=== PATIENT | female | born 2000 | race Caucasian/White ===

== ENCOUNTER 2022-05-15 20:07 | Emergency (ER) | payer OTHER, SELFPAY ==
[2022-05-15 20:14] VITALS: BP 124/77; PULSE 103; RESP 16; TEMP 36.6; O2SAT 99; BMI 22.2
--- NOTE | 2022-05-15 20:59 | ED.GENADULT ---
HPI - General Adult General Chief complaint: Allergic Reaction Stated complaint: Reaction to Medication,Nausea,Muscle Soreness Time Seen by Provider: 05/15/22 20:22 History of Present Illness HPI narrative: 22-year-old young woman recently moved to the area here with concern of potential allergic reaction. She is wondering if might be reacting to spironolactone given the symptoms she has been dealing with. Has been on spironolactone for some months for acne. Dose was increased a couple of weeks ago. She has had diarrhea for months. Does have preceding abdominal cramping. No hematochezia or melena described. No fever. Does have generalized sense of nausea more so over the last 2 weeks along with continued diarrhea and some tightness or discomfort in her upper back. Headache as well. Notes a history though of migraines. She does acknowledge a significant history of chronic stress but has not had diarrhea with increased stress in the past. No particular exposures or concerning ingestions. Moved some years ago from [place], where she had been attending college at [place]. Most recently from [place]. No fevers. No rashes. No focal weakness. No visual disturbances. LMP was 1 week ago. Denies possibility of . Did have asymptomatic COVID last year sometime. Related Data Home Medications Medication Instructions Recorded Confirmed spironolactone 50 mg tablet 75 mg PO DAILY 05/15/22 05/15/22 (Aldactone) Review of Systems Status of ROS: Reports: 10 or more systems reviewed and unremarkable except as noted in History and below [facility] Medical History No significant past medical history Surgical History (Updated 05/15/22 @ 21:04 by Randy Renteria RN) No significant past surgical history Social History Smoking Status: Never smoker Do you use any of these nicotine containing products: None Second hand tobacco smoke exposure: No How often do you have a drink containing alcohol: never How often do you have six or more drinks on one occasion: Never AUDIT-C Alcohol total score: 0 Non-prescribed substance use: denies use Exam Narrative: Exam Narrative: Pleasant. NAD. Direct in communication style. Skin is warm and dry. Closed comedonal acne about her face. Extremities are without edema. Moving all extremities without difficulty. Cranial nerves 2-12 to be intact. Neck is supple without lymphadenopathy. There is trace erythema in oropharynx posteriorly. Head is atraumatic. Lungs are clear is no flank pain. Abdomen is soft and with mild discomfort generally to palpation. No masses are appreciated. Heart rate is elevated rate in a regular rhythm. No murmur rub or gallop identified. Const: Vital Signs, click to edit/add: Vital Signs - 24 hr 05/15/22 20:14 05/15/22 21:39 05/15/22 22:27 Temperature 97.9 F 97.9 F 97.9 F Pulse Rate [Left P ulse Oximeter] 103 H 94 94 Respiratory Rate 16 16 16 Blood Pressure [Le ft Upper Arm] 124/77 115/74 115/74 Pulse Oximetry 99 99 Oxygen Delivery Me thod Room Air Room Air Documenting provider has reviewed patient's vital signs: yes Course Vital Signs Vital signs: Initial Vital Signs Respiratory Effort Spontaneous 05/15/22 20:09 Respiratory Depth Normal 05/15/22 20:09 Respiratory Pattern 05/15/22 20:09 Vital Signs Temperature 97.9 F 05/15/22 20:14 Pulse Rate 103 H 05/15/22 20:14 Respiratory Rate 16 05/15/22 20:14 Blood Pressure 124/77 05/15/22 20:14 Pulse Oximetry 99 05/15/22 20:14 Oxygen Delivery Method 05/15/22 20:14 Temperature 97.9 F 05/15/22 22:27 Pulse Rate 94 05/15/22 22:27 Respiratory Rate 16 05/15/22 22:27 Blood Pressure 115/74 05/15/22 22:27 Pulse Oximetry 99 05/15/22 21:39 Oxygen Delivery Method 05/15/22 21:39 Medical Decision Making MDM Narrative Medical decision making narrative: Declined treatments for nausea or headache or IV fluids at this time. I think it is hard to say whether not is having a medication reaction as is her concern at this time. Possibly more of an intolerance. Did offer general testing looking for red flags in laboratory. Looking for evidence of poor renal or liver function. She would like to proceed with this. Stool sample if possible. Labs ultimately unremarkable including negative testing for COVID and influenza. Lab Data Lab results reviewed: Yes I reviewed the patient's lab results Labs: Lab Results 0105/15/22 05/15/22 Range/Units 20:52 21:02 21:02 WBC 8.73 (4.50-11.00) K/uL RBC 4.66 (4.00-5.20) m/uL Hgb 14.5 (12.0-16.0) gm/dL Hct 40.8 (33.0-51.0) % MCV 88 (80-100) fL MCH 31 (26-34) pg MCHC 36 (32-36) gm/dL RDW Coeff of Jacinto 12.1 (11.5-15.5) % Plt Count 313 (140-440) K/uL Neut % (Auto) 56.5 (42.0-72.0) % Lymph % (Auto) 36.2 (20-44) % [place] % (Auto) 5.2 (0.0-11.0) % Eos % (Auto) 1.3 (0.0-7.0) % Baso % (Auto) 0.3 (0.0-3.0) % Neut # (Auto) 4.94 (1.7-7.0) K/uL Lymph # (Auto) 3.16 H (0.90-2.90) K/uL [place] # (Auto) 0.50 (0.00-0.90) K/UL Eos # (Auto) 0.11 (0.00-0.50) K/uL Baso # (Auto) 0.03 (0.00-0.30) K/uL Sodium 140 (135-149) mmol/L Potassium 4.5 (3.6-5.1) mmol/L Chloride 107 (96-114) mmol/L Carbon Dioxide 27 (20-32) mmol/L BUN 12 (5-24) mg/dL Creatinine 0.8 (0.5-1.5) mg/dL Estimated Creat Clear 118.27 Estimated GFR 106 ml/min Glucose 95 (60-115) mg/dL Calcium 9.5 (8.4-10.6) mg/dL Total Bilirubin 0.5 (0.1-1.5) mg/dL Direct Bilirubin 0.1 (0.0-0.5) mg/dL AST 30 (12-35) U/L ALT 23 (4-35) U/L Alkaline Phosphatase 141 (40-150) U/L C-Reactive Protein < 0.5 L (0.5-1.0) mg/dL Total Protein 7.7 (6.0-8.3) g/dL Albumin 4.6 (3.3-5.0) g/dL SARS-CoV-2 (PCR) Negative SARS-CoV-2 (Negative) Influenza Type A (PCR) Negative PCR FLU A (Negative) Influenza Type B (PCR) Negative PCR FLU B (Negative) Discharge Plan Discharge Clinical Impression: Malaise, Diarrhea Patient Disposition: Home, Self-Care Condition: Stable Additional Instructions: Of course there are more typical side effects; expected side effects to medications. However, medications can cause a variety of side effects unique to unique individuals that might be harder to predict. At this time I do not see evidence of something dangerous for you. Given the duration of diarrhea it does warrant further workup. If you can leave a sample there are orders pending here for stool culture and ova and parasite as a start of the workup. I would encourage you to establish primary care for follow-up otherwise. Prescriptions: No Action spironolactone [Aldactone] 50 mg tablet 75 mg PO DAILY Follow Up/Referrals: Provider,Not a Local [Primary Care Provider] - Stand Alone Forms: [employer] Info Instructions
[2022-05-15 21:09] LABS: Basophils Absolute Auto 0.03 K/uL (0.00-0.30); Basophils Percent Auto 0.3 % (0.0-3.0); Eosinophils Absolute Auto 0.11 K/uL (0.00-0.50); Eosinophils Percent Auto 1.3 % (0.0-7.0); Hematocrit 40.8 % (33.0-51.0); Hemoglobin* 14.5 gm/dL (12.0-16.0); Immature Granulocytes Abs Auto 0.04 K/uL (0.00-0.30); Immature Granulocytes Pct Auto 0.5 %; Lymphocytes Absolute Auto 3.16 K/uL (0.90-2.90); Lymphocytes Percent Auto 36.2 % (20-44); Mean Corpuscular HGB Conc 36 gm/dL (32-36); Mean Corpuscular Hemoglobin 31 pg (26-34); Mean Corpuscular Volume 88 fL (80-100); Monocytes Percent Auto 5.2 % (0.0-11.0); Neutrophils Absolute Auto 4.94 K/uL (1.7-7.0); Neutrophils Percent Auto 56.5 % (42.0-72.0); Platelet Count* 313 K/uL (140-440); RDW Coefficient of Variation % 12.1 % (11.5-15.5); Red Blood Count 4.66 m/uL (4.00-5.20); White Blood Count* 8.73 K/uL (4.50-11.00)
[2022-05-15 21:25] LABS: Albumin* 4.6 g/dL (3.3-5.0); Chloride* 107 mmol/L (96-114); Potassium* 4.5 mmol/L (3.6-5.1); Sodium* 140 mmol/L (135-149)
[2022-05-15 21:27] LABS: Creatinine* 0.8 mg/dL (0.5-1.5); Est. Creatinine Clearance* 118.27; Estimated Glomerular Filt Rate 106 ml/min
[2022-05-15 21:28] LABS: Alanine Aminotransferase* 23 U/L (4-35); Alkaline Phosphatase* 141 U/L (40-150); Aspartate Amino Transferase* 30 U/L (12-35); Bilirubin Direct* 0.1 mg/dL (0.0-0.5); Bilirubin Total* 0.5 mg/dL (0.1-1.5); Blood Urea Nitrogen* 12 mg/dL (5-24); Carbon Dioxide* 27 mmol/L (20-32); Glucose* 95 mg/dL (60-115); Total Protein* 7.7 g/dL (6.0-8.3)
[2022-05-15 21:29] LABS: Calcium* 9.5 mg/dL (8.4-10.6)
[2022-05-15 21:30] LABS: Slide Review Reflex No
[2022-05-15 21:36] LABS: C Reactive Protein* < 0.5 mg/dL (0.5-1.0)
[2022-05-15 21:39] VITALS: BP 115/74; PULSE 94; RESP 16; TEMP 36.6; O2SAT 99
[2022-05-15 21:44] LABS: PCR FLU A Negative PCR FLU A (Negative); PCR FLU B Negative PCR FLU B (Negative)
[2022-05-15 22:11] LABS: SARS PCR* Negative SARS-CoV-2 (Negative)
[2022-05-15 22:27] VITALS: BP 115/74; PULSE 94; RESP 16; TEMP 36.6
== END 2022-05-15 22:28 | disposition home or self-care (01) ==
PROVIDERS: Emergency Provider Family Medicine
DX: Z20.822 Contact with and (suspected) exposure to COVID-19 (principal); R53.81 Other malaise; R19.7 Diarrhea, unspecified
CPT/HCPCS: 36415; 80048; 80076; 85025; 86140; 87045; 87046; 87177; 87209; 87427; 87631; 99283; 99284